=== PATIENT | female | born 1990 | race Caucasian/White ===

== ENCOUNTER 2025-01-22 15:05 | Emergency (ER) | payer OTHER ==
[~2025-01-22] VITALS: Ht 165.1 cm; Wt 104.5 kg
[2025-01-22] MEDS: KETOROLAC 60 MG/2 ML VIAL IM ONE (17:55)
[2025-01-22 18:03] VITALS: BP 112/71; TEMP 98.4; O2SAT 97
== END 2025-01-22 19:00 | disposition home or self-care (01) ==
LOC: M ED 15:05
DX: S93.401A Sprain of unspecified ligament of right ankle, initial encounter (principal); X50.0XXA Overexertion from strenuous movement or load, initial encounter; F17.200 Nicotine dependence, unspecified, uncomplicated; Y92.830 Public park as the place of occurrence of the external cause; Y93.02 Activity, running; Y99.9 Unspecified external cause status